=== PATIENT | female | born 1990 | race Caucasian/White ===

== ENCOUNTER 2023-07-29 22:47 | Outpatient (CLI) | payer BC, SELFPAY ==
[2023-07-29 23:04] VITALS: BP 113/78; PULSE 78
[2023-07-29 23:19] VITALS: BMI 32.1
[2023-07-29 23:20] VITALS: BP 121/69; PULSE 83
[2023-07-29 23:41] VITALS: BP 114/76; PULSE 77
[2023-07-29 23:55] VITALS: BP 117/77; PULSE 84
[2023-07-30] VITALS (11 sets, daily range): BP systolic 109–135; BP diastolic 71–85; PULSE 79–101; RESP 16; TEMP 36.8; O2SAT 100
--- NOTE | 2023-07-30 00:02 | USR_ITS ---
PROCEDURE INFORMATION: Exam: US Biophysical Profile Without Non-Stress Test Exam date and time: 07/30/2023 12:06 AM Age: 33 years old Clinical indication: Other: Decreased movement; ; Additional info: Decreased movement, low rosanne TECHNIQUE: Imaging protocol: US biophysical profile without non-stress testing. COMPARISON: US OB >= 14 weeks fetus [id number] 04/27/2023 10:57 AM FINDINGS: heart rate: 133 bpm presentation: Breech presentation. Amniotic fluid index: ROSANNE is 1.07 cm. BIOPHYSICAL PROFILE: breathing movement (BPP): 2 out of 2. body movement (BPP): 2 out of 2. tone (BPP): 0 out of 2. Amniotic fluid (BPP): 0 out of 2. US/US OB BPP wo NST 68284 IMPRESSION: Biophysical profile score equals 4/8.
--- NOTE | 2023-07-30 01:43 | P.TS_ITS ---
Transfer Summary Providers Date of Admission: July 29, 2023 Date of Discharge/Transfer: 07/30/23 Attending Provider at Transfer: Fred Yates MD Transfer Plans: Anticipated date of transfer: 07/30/23 . Diagnoses at Discharge Discharge Diagnosis (1) 34 weeks gestation of : Status: Acute (2) Low amniotic fluid: Status: Acute Other Information Additional DC diagnoses/information: The patient's labs are as follows. Her blood type is AB+. Her she is antibody screen negative. Her glucose screen was negative. She is rubella immune. Her HIV, chlamydia, gonorrhea, RPR wet prep and Pap are all negative. Her urinalysis and culture were negative. Hepatitis A and hepatitis B were negative. GBS has not been done yet. She received her Tdap on 14 July. Reason for Visit Reason for Visit loss of movement Brief History: The patient is a 33-year-old 1 at 34 weeks and 5 days EGA who presented to the hospital with reduced movement. The patient had noticed that the baby's movement had been decreased. The patient has a known history of having a borderline ROSANNE and was scheduled to have a biophysical profile done later today. A biophysical profile performed 2-3 days ago demonstrated an ROSANNE of 5. Fortunately, the patient was mindful of movement and came to the hospital after noticing that her baby was not moving as much. Hospital Course Hospital Course After arriving at the hospital, the patient was noted to have a category 1 tracing including 15 x 15 accelerations. But given the patient's concern about movement and the patient's history of a low ROSANNE, a biophysical profile was performed the patient was noted to have an ROSANNE of 1.07. For a biophysical profile/NST score of 6 out of 10. The patient otherwise feels fine. Con tractions are noted on the monitor, but the patient can barely feel them. Physical Exam Const: COMMON NORMALS: patient oriented x3 and alert HENMT: COMMON NORMALS: moist oral mucous membranes HEAD & SCALP: normal to inspection Chest: COMMONS NORMALS: normal inspection of the chest Resp: COMMON NORMALS: clear to auscultation bilaterally AUSCULTATION: clear to auscultation bilaterally Cardio: COMMON NORMALS: regular rate and regular rhythm RATE: regular rate RHYTHM: regular rhythm GI: INSPECTION: Yes normal to inspection and Yes other (Gravid) Extremity: COMMON NORMALS: normal to inspection GENERAL: Yes edema (Trace) Neuro: COMMON NORMALS: patient oriented x3, moves all extremities and no sensory deficits noted SENSORIUM/ORIENTATION: Yes alert Psych: COMMON NORMALS: mental status grossly normal Skin: COMMON NORMALS: no rashes or lesions noted GENERAL SKIN EXAM: no rashes or lesions noted TS Data Studies Completed and Pending Pending at discharge Category Date Time Status Complete Blood Count w/Auto Stat Lab 07/30/23 01:31 Ordered US OB biophysical profile without NST [US OB BPP Ultrasound 07/30/23 00:02 Taken wo NST [id number]] Stat Recent Clincial Data Last Vital Signs Pulse 100 07/30/23 01:41 BP 135/76 07/30/23 01:41 Vital Signs Pulse BP 07/30/23 01:41 100 135/76 07/30/23 01:25 83 129/85 07/30/23 01:10 92 126/82 07/29/23 23:55 84 117/77 07/29/23 23:41 77 114/76 07/29/23 23:20 83 121/69 07/29/23 23:04 78 113/78 Intake & Output/Weight 07/27/23 07/28/23 07/29/23 07/30/23 06:59 06:59 06:59 06:59 Weight 199 lb 8 oz Vitals Last Vital Signs Pulse 100 07/30/23 01:41 BP 135/76 07/30/23 01:41 TS Medications Medications Lactated Ringer's (Lactated Ringers) 1,000 mls @ 999 mls/hr IV .Q1H1M ONE Stop: 07/30/23 02:31 Vancomycin HCl / Sodium (Chloride) 250 mls @ 0 mls/hr [id number] Q8H YASMIN Discontinued Medications Terbutaline Sulfate (Terbutaline 1 Mg/Ml Inj) 0.25 mg SUBCUT ONCE ONE Stop: 07/30/23 01:32 Allergies amoxicillin Allergy (Verified 07/30/23 01:33) ALGY-Hives cefuroxime Allergy (Verified 07/30/23 01:33) ALGY-Hives Home Medications biotin 1 mg tablet 1 mg PO DAILY 07/30/23 [History Confirmed 07/30/23] loratadine 10 mg tablet (Claritin) 10 mg PO DAILY 07/30/23 [History Confirmed 07/30/23] [id number] 1 mg tablet 1 tab PO DAILY 07/30/23 [History Confirmed 07/30/23] Discharge Plan Discharge Patient Disposition: Xfer Other Prescriptions: No Action biotin 1 mg Tablet 1 mg PO DAILY Claritin 10 mg Tablet 10 mg PO DAILY 1 mg Tablet 1 tab PO DAILY Transfer Attestations Time Spent in Transfer Care: greater than 30 min Quality Metrics Clinical Quality Measures [ No reported AMI, CVA or VTE this stay] Coding Level of Care Code Acute Code for Chg Fwd Diagnoses 34 weeks gestation of Z3A.34 Low amniotic fluid O41.00X0 A&P Assessment and plan (1) 34 weeks gestation of : Because the patient has a category 1 tracing with accelerations, we will plan on transferring the patient to [place] for delivery. I discussed the options with the patient as well as the pros and cons including the option of delivering here, and she would like to deliver in [place] if at all p ossible. As long as the heart tones continue to be reasonable, we will transfer her. We have initiated betamethasone, have given her a fluid bolus, and have initiated group B strep protocol. She is penicillin and beta-lactam allergic, and we do not know her erythromycin sensitivity so she is being placed on vancomycin. Status: Acute (2) Low amniotic fluid: Status: Acute
[2023-07-30] MEDS: lactated ringers 1,000 ML 999 ML IV (01:51)
[2023-07-30] MEDS: vancomycin 1,750 MG/350 ML PIGGYBACK 233.33 MG IV (01:56)
[2023-07-30 02:02] LABS: Basophils % 0.3 %; Eosinophils # 0.2 10^3/uL (0.0-0.8); Eosinophils % 1.9 %; Hematocrit 38.8 % (36-47); Lymphocytes % 25.2 %; Mean Corpuscular HGB Conc 33.5 g/dL (30-55); Mean Corpuscular Hemoglobin 29.4 pg (27-33); Mean Corpuscular Volume 87.8 fl (85-98); Mean Platelet Volume 9.8 fL (7.4-10.4); Monocytes # 0.7 10^3/uL (0.2-0.9); Monocytes % 6.1 %; Neutrophils # 7.87 10^3/uL (1.8-7.7); Neutrophils % 65.7 %; Nucleated Red Blood Cells % 0 %; Platelet Count 234 10^3/cmm (157-399); Red Blood Count 4.42 10^6/uL (3.85-5.65); Red Cell Distribution Width 14.2 % (12.1-15.1); White Blood Count 11.99 10^3/uL (3.29-11.43)
[2023-07-30] MEDS: betamethasone susp 6 mg/mL 5 mL 12 MG IM (02:09)
== END 2023-07-30 03:11 | disposition other institution (70) ==
LOC: OPOB 22:48 → OBGYN 22:50
PROVIDERS: Visit Provider Family Medicine
DX: O41.00X3 Oligohydramnios, unspecified trimester, fetus 3 (principal); Z3A.34 34 weeks gestation of pregnancy
CPT/HCPCS: 76819; 85025; 96372; J0702; J3105; J3372; J7120